=== PATIENT | female | born 1955 | race Caucasian/White ===

== ENCOUNTER 2017-10-11 06:32 | Inpatient (IN) | payer BC, MEDICAID ==
[~2017-10-11] VITALS: Ht 165.1 cm; Wt 108.5 kg
[~2017-10-11 06:32] MED LIST: HYDR25TA4 PO; OMEP20CA10 PO
[2017-10-11 06:50] VITALS: BP_SYST 166
--- NOTE | 2017-10-11 06:50 | NUR ---
Patient to ER bed 3 to gown for evaluation. Side rails up.
--- NOTE | 2017-10-11 07:15 | NUR ---
MD Kulkarni at bedside.
[2017-10-11] MEDS ORDERED: NACL 0.9% 1,000 ML IV ONE (07:20)
[2017-10-11 07:47] LABS: BASOPHILS % (AUTO) 0.8 % (0.0-2.0); EOSINOPHILS % (AUTO) 0.5 % (0.0-4.0); HEMATOCRIT 42.1 % (36-48); HEMOGLOBIN 14.3 g/dL (12.0-16.0); LYMPHOCYTES # (AUTO) 1.2 K/uL (1.0-5.5); LYMPHOCYTES % (AUTO) 20.3 % (20.5-51.5); MEAN CORPUSCULAR HEMOGLOBIN 31 pg (27-31); MEAN CORPUSCULAR HGB CONC 34 % (32-36); MEAN CORPUSCULAR VOLUME 92 fL (79.0-98.0); MONOCYTES # (AUTO) 0.7 K/uL (0.0-1.0); MONOCYTES % (AUTO) 11.8 % (1.7-9.3); NEUTROPHILS # (AUTO) 4.2 K/uL (1.8-7.7); NEUTROPHILS % (AUTO) 66.6 % (40.0-70.0); PLATELET COUNT (AUTO) 208 K/uL (130-430); RED BLOOD CELL COUNT(AUTO) 4.57 MIL/uL (4.2-6.2); RED CELL DISTRIBUTION WIDTH 13.6 % (9.0-15.0); WHITE BLOOD COUNT (AUTO) 6.1 K/uL (4.8-10.8)
[2017-10-11 07:55] LABS: CALCIUM 8.8 mg/dL (8.4-11.0); CREATININE 0.78 mg/dL (0.55-1.30); POTASSIUM 3.4 mmol/L (3.5-5.1)
[2017-10-11 08:11] LABS: ALBUMIN 3.5 g/dL (3.4-4.8); TOTAL BILIRUBIN 0.5 mg/dL (0.0-1.0)
--- NOTE | 2017-10-11 08:50 | NUR ---
Patient reassessed resting comfortably, comfort measures provided, VSS, condition stable, awaiting on urinalysis.
[2017-10-11 10:12] LABS: BILIRUBIN,URINE 1+ (NEGATIVE); BLOOD, URINE 1+ (NEGATIVE); CLARITY/URINE SL HAZY (CLEAR); COLOR,URINE AMBER (YELLOW); GLUCOSE,URINE NEGATIVE (NEGATIVE); KETONES,URINE NEGATIVE (NEGATIVE); LEUKOCYTE ESTERASE ,URINE NEGATIVE (NEGATIVE); NITRITE, URINE NEGATIVE (NEGATIVE); PROTEIN URINE NEGATIVE (NEGATIVE); UROBILINOGEN,URINE 0.2 (0.2-1.0)
[2017-10-11 10:19] LABS: BACTERIA,URINE MODERATE /HPF (None Seen); MUCUS,URINE 1+ /LPF (None Seen); WBC,URINE 0-3 /HPF (0-3)
--- NOTE | 2017-10-11 10:29 | NUR ---
Pt c/o feeling "Fever" assessed oral temp 99.4 at bedside.
[2017-10-11] MEDS ORDERED: KETOROLAC TROMETHAMINE 15 MG VIAL IVP ONE (10:30)
--- NOTE | 2017-10-11 11:00 | NUR ---
Patient will be admitted to [facility]. Admitted to unit. Will go to room . Belongings list completed. Summary report printed. Report will be given at bedside.
--- NOTE | 2017-10-11 11:04 | NUR ---
ADMISSION NOTE Received patient from ER via marshall, received report from ENERGY PROJECT ENGINEER. Patient admitted with diagnosis of DEHYDRATION/GASTROENTERITIS. Patient oriented to hospital routine, call light, toileting and safety-patient verbalized understanding.
[2017-10-11 11:06] VITALS: BP_SYST 138
[2017-10-11] MEDS ORDERED: LEVO50TA77 PO (11:22)
[2017-10-11] MEDS ORDERED: METO25TA6 PO (11:22)
[2017-10-11] MEDS ORDERED: ALBMDI INH (11:22)
[2017-10-11] MEDS ORDERED: LORA10TA7 PO (11:22)
[2017-10-11] MEDS ORDERED: FLUT9.9S NS (11:22)
--- NOTE | 2017-10-11 13:00 | NUR ---
RN OPENING NOTE REPRORT RECEIVED FROM GEOVANY TINSLEY, ROSEANN, PATIENT WAS ASSESSED , VITAL SIGNS ARE STABLE, PATIENT BED WAS PUT AT A LOW POSITION AND CALL LIGHT WITHIN REACH, PATIENT DENIES PAIN OR DISCOMFORT. WILL CONTINUE TO FOLLOW UP AND WILL CALL DR. WARREN FOR FURTHER ORDERS.
--- NOTE | 2017-10-11 15:00 | NUR ---
RN NOTES PATIENT WENT TO SMOKE WITH SINDHU THE [employer] DEPARTMENT MANAGER ACCOMPANIED HER, PATIENT DENIES PAIN OR DISCOMFORT. WILL CONTINUE TO MONITOR.
[2017-10-11 16:56] VITALS: BP_SYST 157
--- NOTE | 2017-10-11 18:00 | NUR ---
RN CLOSING NOTE TRYING TO REACH FOR DR. GAN, HE WAS PAGED, PATIENT IS COMPLAINING OF SORE THROAT AND A LITTLE HEADACHE, NO MEDICINE ENTERED BY DR. GAN, WILL TRY TO PAGE HIM AGAIN, MEANWHILE PATIENT WAS SERVED HIS DINNER. SAT ON HER BED EATING . WILL CONTINUE TO MONITOR AND WILL ENDORSE TO NEXT SHIFT.
--- NOTE | 2017-10-11 19:20 | NUR ---
OPENING NOTES Bedside report received from day shift nurse. Patient received sitting up in bed, AOx4. Patient complaining of headache and sore throat. Patient informed that Dr. Cali has been paged and she will be update as soon as possible. No SOB. Breathing even and unlabored. Call light with patient, instructed to call for any assistance, patient verbalized understanding. Bed is locked and at lowest position. Will continue to monitor.
[2017-10-11 20:00] VITALS: BP_SYST 151
--- NOTE | 2017-10-11 20:37 | NUR ---
DR. GAN PRESENT AT BEDSIDE Dr. GAN at bedside assessing patient. Patient informed MD of 01/04 pain. MD stated he will put in the orders for morphine. Will carry out orders.
[2017-10-11] MEDS ORDERED: MORPHINE SULFATE 30 MG Immediate Release TABLET PO PRN (20:45)
[2017-10-11] MEDS ORDERED: POTASSIUM CHLORIDE 20 MEQ TAB.PRT.SR PO ONE (21:00)
[2017-10-11] MEDS: MORPHINE 4 MG/ML INJ. SYRINGE IVP PRN (21:20)
--- NOTE | 2017-10-11 21:20 | NUR ---
PAIN Patient stated that her headache is now a 10/10 pain. Morphine administered per PRN order. Patient educated on side effects of morphine and instructed to call for assistance, patient verbalized understanding. Will continue to monitor and reassess.
--- NOTE | 2017-10-11 22:00 | NUR ---
REASSESS PAIN Patient stated that her pain is 2/10, tolerable. Pain medication is effective. All of patient's needs met at this time. Call light with patient. Will continue to monitor.
[2017-10-11] MEDS: IPRATROPIUM/ALBUTEROL SULFATE 3 ML AMPUL.NEB INH PRN (22:03)
[2017-10-11] MEDS ORDERED: metroNIDAZOLE 500 mg/NS 200 ML IV ONE (22:23)
[2017-10-11 22:27] VITALS: BP_SYST 151
[2017-10-11] MEDS: metroNIDAZOLE 500 mg/NS 100 ML IV SCH (22:31)
--- NOTE | 2017-10-12 | NUR ---
ROUNDS Patient in bed sleeping. No s/s of acute distress. Chest rise and fall are even bilaterally. Call light within reach. Will continue to monitor.
--- NOTE | 2017-10-12 | NUR ---
RECOLLECT STOOL RN informed by LAB that stool sample needs to be recollected. Will carry out.
[2017-10-12 00:14] VITALS: BP_SYST 130
--- NOTE | 2017-10-12 01:20 | NUR ---
COMPLAIN OF PAIN Patient complained of 7/10 pain. Morphine administered per PRN orders. Patient educated on side effects of medication, instructed to call for any assistance, call light with patient, patient verbalized understanding. Will continue to monitor.
[2017-10-12] MEDS: MORPHINE 4 MG/ML INJ. SYRINGE IVP PRN ×5 (01:27→23:30)
--- NOTE | 2017-10-12 02:11 | NUR ---
Consult Called for Jaylin Hardy Reason for consultation: C. DIFF Person who was notified: Eri Ordered by Dr. Cali
--- NOTE | 2017-10-12 04:10 | NUR ---
ROUNDS Patient in bed sleeping at this time. No signs of discomfort noted. No SOB. Breathing even and unlabored. Call light within reach. Will continue to monitor.
[2017-10-12] MEDS: metroNIDAZOLE 500 mg/NS 100 ML IV SCH ×3 (06:00→23:29)
[2017-10-12] MEDS: LEVOTHYROXINE SODIUM 0.05 MG TABLET PO SCH (06:00)
--- NOTE | 2017-10-12 06:22 | NUR ---
CLOSING NOTES Patient in bed at this time watching TV. No s/s of acute distress noted. IV antibiotics infusing well, IV site shows no infection or infiltration. No SOB. Breathing even and unlabored. All of patient's needs met throughout shift. Fall and safety precautions met throughout shift. Will continue to monitor until patient care is endorsed to oncoming day shift nurse.
[2017-10-12 06:47] LABS: BASOPHILS % (AUTO) 0.1 % (0.0-2.0); EOSINOPHILS % (AUTO) 0.7 % (0.0-4.0); HEMATOCRIT 38.6 % (36-48); HEMOGLOBIN 13.2 g/dL (12.0-16.0); LYMPHOCYTES # (AUTO) 1.1 K/uL (1.0-5.5); LYMPHOCYTES % (AUTO) 19.7 % (20.5-51.5); MEAN CORPUSCULAR HEMOGLOBIN 32 pg (27-31); MEAN CORPUSCULAR HGB CONC 34 % (32-36); MEAN CORPUSCULAR VOLUME 93 fL (79.0-98.0); MONOCYTES # (AUTO) 0.7 K/uL (0.0-1.0); MONOCYTES % (AUTO) 12.6 % (1.7-9.3); NEUTROPHILS # (AUTO) 3.8 K/uL (1.8-7.7); NEUTROPHILS % (AUTO) 66.9 % (40.0-70.0); PLATELET COUNT (AUTO) 169 K/uL (130-430); RED BLOOD CELL COUNT(AUTO) 4.14 MIL/uL (4.2-6.2); RED CELL DISTRIBUTION WIDTH 13.5 % (9.0-15.0); WHITE BLOOD COUNT (AUTO) 5.6 K/uL (4.8-10.8)
[2017-10-12 07:13] LABS: ALBUMIN 3.2 g/dL (3.4-4.8); CALCIUM 8.9 mg/dL (8.4-11.0); CREATININE 0.71 mg/dL (0.55-1.30); FREE T4 (FREE THYROXINE) 0.7 ng/dL (0.6-1.6); POTASSIUM 3.6 mmol/L (3.5-5.1); TOTAL BILIRUBIN 0.5 mg/dL (0.0-1.0)
--- NOTE | 2017-10-12 07:40 | NUR ---
INITIAL NOTE PT IN BED, NO S/S OF DISTRESS OR SOB NOTED, PT HAS NO C/O PAIN AT THIS TIME, PT IN STABLE CONDITION, PT AAOX4, VERBAL, IV CATHETER PATENT, NO SIGNS OF INFECTION OR INFILTRATION NOTED. BED AT LOWEST POSITION, CALL LIGHT WITHIN REACH, WILL CONTINUE TO MONITOR PT FOR ANY CHANGES, FALL AND SAFETY PRECAUTIONS IN PLACE. PT REFUSED TO HAVE BED ALARM ON AND SCD'S, EDUCATED ON IMPORTANCE OF SCD'S TO PREVENT DVT, PT VERBALIZED BUT REFUSED, EDUCATED ON SAFETY AND HAVING BED ALARM ON BUT PT REFUSED AND VERBALIZED UNDERSTANDING.
[2017-10-12 08:30] VITALS: BP_SYST 175
[2017-10-12] MEDS: LORATADINE 10 MG TABLET PO SCH (08:31)
[2017-10-12] MEDS: OMEPRAZOLE 20 MG CAPSULE.DR (PriLOSEC) PO SCH (08:31)
[2017-10-12] MEDS: HYDROCHLOROTHIAZIDE 25 MG TABLET (HCTZ) PO SCH (08:32)
[2017-10-12] MEDS: METOPROLOL TARTRATE 25 MG TABLET PO SCH (08:32)
--- NOTE | 2017-10-12 10:00 | NUR ---
ROUNDS PT IN BED, NO S/S OF DISTRESS OR SOB NOTED, PT HAS NO C/O PAIN AT THIS TIME, PT IN STABLE CONDITION, PT RESTING COMFORTABLY, WILL CONTINUE TO MONITOR PT FOR ANY CHANGES.
[2017-10-12 12:16] VITALS: BP_SYST 127
--- NOTE | 2017-10-12 14:33 | NUR ---
ROUNDS PT IN BED, NO S/S OF DISTRESS OR SOB NOTED, PT HAS NO C/O PAIN AT THIS TIME, PT IN STABLE CONDITION, PT RESTING COMFORTABLY AND TALKING ON THE PHONE, WILL CONTINUE TO MONITOR PT FOR ANY CHANGES.
[2017-10-12] MEDS ORDERED: LACTOBACILLUS RHAMNOSUS GG 1 CAP CAPSULE PO ONE (14:45)
--- NOTE | 2017-10-12 15:06 | NUR ---
CONSULTATION CALLED REASON FOR CONSULTATION:COPD WAS CONSULT CALLED?Y PERSON WHO WAS NOTIFIED:THOMAS CONSULTING PHYSICIAN:BRIA DUNBAR [facility] PHONE NUMBER:[phone] ORDERING PHYSICIAN:MONTSERRAT DIAMOND
[2017-10-12 16:32] VITALS: BP_SYST 135
[2017-10-12] MEDS ORDERED: methylPREDNISolone SOD SUCC/PF 62.5 MG/ML VIAL IVP ONE (17:58)
--- NOTE | 2017-10-12 18:10 | NUR ---
D/C Planning: Received message requesting CM to call back Taylor with [employer] at [phone]. Called [facility] at [phone] left message with CM number for return call.
--- NOTE | 2017-10-12 18:33 | NUR ---
CLOSING NOTE PT IN BED, NO S/S OF DISTRESS OR SOB NOTED, PT HAS NO C/O PAIN AT THIS TIME, PT IN STABLE CONDITION, PT AAOX4, VERBAL, IV CATHETER PATENT, NO SIGNS OF INFECTION OR INFILTRATION NOTED. BED AT LOWEST POSITION, CALL LIGHT WITHIN REACH, WILL ENDORSE CARE OF PT TO INCOMING NURSE, FALL AND SAFETY PRECAUTIONS IN PLACE. PT REFUSED TO HAVE BED ALARM AND SCD'S IN PLACE, EDUCATED ON NEED BUT CONTINUES TO REFUSE.
[2017-10-12] MEDS: AZITHROMYCIN 500 MG in NS 250 ML IV SCH (18:55)
--- NOTE | 2017-10-12 19:40 | NUR ---
INITIAL NOTES RECEIVED PATIENT ON BED AWAKE AND ALERT, A/OX4 BREATHING EVEN AND UNLABORED, MAINTAINED POSITION OF COMFORT, MAINTAINED SAFETY PRECAUTION, NO PAIN NOTED, BED ON THE LOWEST POSITION. ENCOURAGED DEEP BREATHING EXERCISES AND RELAXATION. PATIENT STATED THAT SHE WANTS TO SMOKE, EDUCATION GIVEN ABOUT POLICIES OF SMOKING, HANNAH RAYMOND WILL ACCOMPANY THE PATIENT. EXPLAINED THE PLAN OF CARE AND VERBALIZED UNDERSTANDING, VS ON STABLE CONDITION WILL CONTINUE TO MONITOR CALL LIGHT WITHIN REACH.
[2017-10-12 20:00] VITALS: BP_SYST 159
[2017-10-12] MEDS: LACTOBACILLUS RHAMNOSUS GG 1 CAP CAPSULE PO SCH (21:24)
--- NOTE | 2017-10-12 23:30 | NUR ---
NEW IV NEW IV ON THE RIGHT WRIST 22G CLEAN DRY INTACT PATENT AND NON SWOLLEN WILL CONTINUE TO MONITOR. FLAGYL MEDICATION LATE DUE TO INTERRUPTION WITH IV INSERTION.
--- NOTE | 2017-10-13 00:09 | NUR ---
RN ROUNDS PATIENT ON BED AWAKE AND RESTING, WATCHING TV, BREATHING EVEN AND UNLABORED, MAINTAINED POSITION OF COMFORT MAINTAINED SAFETY PRECAUTION, NO PAIN NOTED. WILL CONTINUE TO MONITOR CALL LIGHT WITHIN REACH
[2017-10-13 00:47] VITALS: BP_SYST 134
--- NOTE | 2017-10-13 02:03 | NUR ---
RN ROUNDS PATIENT ON BED SLEEPING AND RESTING, ON STABLE CONDITION, SAFETY PRECAUTIONS MAINTAINED NO PAIN NOTED, WILL CONTINUE TO MONITOR CALL LIGHT WITHIN REACH.
[2017-10-13] MEDS: IPRATROPIUM/ALBUTEROL SULFATE 3 ML AMPUL.NEB INH SCH ×4 (02:17→21:29)
[2017-10-13] MEDS: IPRATROPIUM/ALBUTEROL SULFATE 3 ML AMPUL.NEB INH PRN (02:18)
--- NOTE | 2017-10-13 04:01 | NUR ---
RN ROUNDS PATIENT STATED THAT SHE WANTED TO SMOKE OUTSIDE GIVEN EDUCATION ABOUT SAFETY PRECAUTIONS PATIENT VERBALIZED UNDERSTANDING BUT STILL WANTED TO GO OUTSIDE AT THIS TIME. WILL CONTINUE TO MONITOR, PATIENT ON STABLE CONDITION. NO SOB NOTED,CALL LIGHT WITHIN REACH
[2017-10-13] MEDS: MORPHINE 4 MG/ML INJ. SYRINGE IVP PRN ×5 (04:31→22:30)
[2017-10-13] MEDS: metroNIDAZOLE 500 mg/NS 100 ML IV SCH ×2 (07:01→14:54)
[2017-10-13] MEDS: LEVOTHYROXINE SODIUM 0.05 MG TABLET PO SCH (07:01)
--- NOTE | 2017-10-13 08:07 | NUR ---
CLOSING NOTES PATIENT ON BED SLEEPING AND RESTING, BREATHING EVEN AND UNLABORED, NO SOB NOTED, NO PAIN NOTED TOLERATING WELL. PATIENT WITH IV CLEAN DRY INTACT, MAINTAINED SAFETY PRECAUTION KEPT COMFORTABLE. KEPT PATIENT COMFORTABLE, ALL NEEDS MET, REPORT GIVEN TO AM NURSE CALL LIGHT WITHIN REACH.
--- NOTE | 2017-10-13 08:11 | NUR ---
PATIENT A/OX4, ON ROOM AIR, SATTING AT 90-92%, NO PAIN NOTED TOLERATING WELL. IV ON LEFT HAND, #22, INTACT AND PATENT, SL. INSTRUCTED ON PLAN OF CARE. CALL LIGHT IN PLACE, BED LOCKED AT THE LOWEST POSITION, WILL CONTINUE TO MONITOR.
[2017-10-13] MEDS: LORATADINE 10 MG TABLET PO SCH (08:31)
[2017-10-13] MEDS: LACTOBACILLUS RHAMNOSUS GG 1 CAP CAPSULE PO SCH ×2 (08:31→20:33)
[2017-10-13] MEDS: HYDROCHLOROTHIAZIDE 25 MG TABLET (HCTZ) PO SCH (08:31)
[2017-10-13] MEDS: METOPROLOL TARTRATE 25 MG TABLET PO SCH (08:32)
[2017-10-13] MEDS: OMEPRAZOLE 20 MG CAPSULE.DR (PriLOSEC) PO SCH (08:32)
--- NOTE | 2017-10-13 10:18 | NUR ---
PATIENT IS AT REST, NO SIGNS OF DISTRESS NOTED, WILL CONTINUE TO MONITOR.
--- NOTE | 2017-10-13 12:22 | NUR ---
PATIENT IS TURNED AND REPOSITIONED FOR COMFORT. HAD A LOOSE BROWN BM
[2017-10-13 12:55] VITALS: BP_SYST 112
--- NOTE | 2017-10-13 14:30 | NUR ---
PATIENT'S DAUGHTER AT BEDSIDE, WITH DR. YOU EXPLAINING THE PLAN OF TREATMENT. Addendum: 10/13/17 at 1936 by Faisal Regan RN WRONG PATIENT.
--- NOTE | 2017-10-13 14:30 | NUR ---
PATIENT REQUESTED TO BE TAKEN OUT TO SMOKE. SHE IS FOLLOWED BY LECTURER IN COMPUTER SCIENCE.
--- NOTE | 2017-10-13 16:17 | NUR ---
PATIENT'S IV RESTARTED AT LEFT HAND, #22, INTACT AND PATENT.
[2017-10-13 17:02] VITALS: BP_SYST 146
[2017-10-13] MEDS ORDERED: FAMOTIDINE 20 MG TABLET PO ONE (17:15)
[2017-10-13] MEDS ORDERED: PREDNISONE 20 MG TABLET PO ONE (17:15)
[2017-10-13] MEDS: AZITHROMYCIN 500 MG in NS 250 ML IV SCH (17:34)
--- NOTE | 2017-10-13 18:30 | NUR ---
PATIENT IS EATING DINNER, NO SIGNS OF DISTRESS NOTED.
--- NOTE | 2017-10-13 19:32 | NUR ---
SUSIE, [facility] REQUESTING PATIENT INFORMATION. SHE LEAVES THE FAX NUMBER [phone]
[2017-10-13 19:40] VITALS: BP_SYST 121
--- NOTE | 2017-10-13 19:40 | NUR ---
Opening note Pt AAOx4, VSS, saturation at 94% on RA. Pt c/o burning pain on L. hand IV 22G with Zithromax abx currently infusing. IV site flushed clear, patent, no infiltration noted. Abx stopped with little bit left in bag. Pt upset that she was poked several times to get IV. RN and information services assistant educated pt that sometimes side effect of IV med is burning at the IV site. Will continue to reassess pt. Call light within reach.
[2017-10-13] MEDS: FAMOTIDINE 20 MG TABLET PO SCH (20:33)
[2017-10-13] MEDS: PREDNISONE 20 MG TABLET PO SCH (20:34)
--- NOTE | 2017-10-13 20:45 | NUR ---
Paged Dr. Cali/change antibiotics to PO Paged and spoke with Dr. Cali re pt's c/o IV abx causing burning pain at IV site. Per MD huff to change IV antibiotic Flagyl and Zithromax to PO.
--- NOTE | 2017-10-13 20:45 | NUR ---
Paged Dr. Cali Paged Dr. Cali, dialed [phone], s/w Alisa.
--- NOTE | 2017-10-13 22:15 | NUR ---
Rounds/Smoking Pt requested to smoke outside. Pt aware of risks. Pt wheeled via wheelchair to smoking area and pt smoked for approx 15 minutes.
[2017-10-13] MEDS: metroNIDAZOLE 500 MG TABLET PO SCH (22:45)
[2017-10-14 00:10] VITALS: BP_SYST 111
--- NOTE | 2017-10-14 00:28 | NUR ---
Rounds Pt asleep. No s/s distress noted. Call light/items within reach. To monitor.
--- NOTE | 2017-10-14 04:30 | NUR ---
Rounds Pt asleep. No s/s distress noted. Call light within reach. To monitor.
[2017-10-14] MEDS: metroNIDAZOLE 500 MG TABLET PO SCH ×2 (06:27→13:35)
[2017-10-14] MEDS: LEVOTHYROXINE SODIUM 0.05 MG TABLET PO SCH (06:27)
--- NOTE | 2017-10-14 07:00 | NUR ---
Closing note Pt's IV came out as she was wiping her face. Pt refused new IV start at this time and states she wants to go home today. Plan is to continue PO antibiotics Flagyl and Zithromax for 10 days upon DC. To endorse to am nurse.
[2017-10-14 07:22] VITALS: BP_SYST 111
--- NOTE | 2017-10-14 07:49 | NUR ---
PATIENT A/OX4, ON ROOM AIR, SATTING AT 92-94%, NO PAIN NOTED TOLERATING WELL. INSTRUCTED ON PLAN OF CARE. CALL LIGHT IN PLACE, BED LOCKED AT THE LOWEST POSITION, WILL CONTINUE TO MONITOR.
[2017-10-14] MEDS: FAMOTIDINE 20 MG TABLET PO SCH (08:12)
[2017-10-14] MEDS: PREDNISONE 20 MG TABLET PO SCH (08:12)
[2017-10-14] MEDS: OMEPRAZOLE 20 MG CAPSULE.DR (PriLOSEC) PO SCH (08:12)
[2017-10-14] MEDS: LACTOBACILLUS RHAMNOSUS GG 1 CAP CAPSULE PO SCH (08:13)
[2017-10-14] MEDS: LORATADINE 10 MG TABLET PO SCH (08:13)
[2017-10-14] MEDS: HYDROCHLOROTHIAZIDE 25 MG TABLET (HCTZ) PO SCH (08:18)
[2017-10-14] MEDS: METOPROLOL TARTRATE 25 MG TABLET PO SCH (08:18)
[2017-10-14] MEDS: IPRATROPIUM/ALBUTEROL SULFATE 3 ML AMPUL.NEB INH SCH (08:31)
[2017-10-14] MEDS ORDERED: AZITHROMYCIN 250 MG TABLET PO SCH (09:00)
[2017-10-14 12:08] VITALS: BP_SYST 130
[2017-10-14 14:10] VITALS: BP_SYST 130
--- NOTE | 2017-10-14 15:08 | NUR ---
D/C Patient Patient given medication reconciliation form and D/C instructions. Exit Care provided. Patient verbalized understanding. MD discussed with patient the results and treatment provided. Ambulatory with steady gait for discharge to home. Patient in stable condition, ID band removed. IV catheter removed, intact and dressing applied, no active bleeding. Rx of Flagyl, probiotics, Medrol pack, and Combivent given. Patient educated on pain management. All belongings sent with patient.
== END 2017-10-14 15:02 | disposition home or self-care (01) | DRG 139 ==
LOC: SED 06:32 → SMU 10:53
PROVIDERS: ADMIT Internal Medicine; ATTEND Internal Medicine
DX: J18.9 Pneumonia, unspecified organism (principal); K52.1 Toxic gastroenteritis and colitis; J44.0 Chronic obstructive pulmonary disease with (acute) lower respiratory infection; R15.9 Full incontinence of feces; J44.1 Chronic obstructive pulmonary disease with (acute) exacerbation; I10 Essential (primary) hypertension; J32.9 Chronic sinusitis, unspecified; E03.9 Hypothyroidism, unspecified; T36.95XA Adverse effect of unspecified systemic antibiotic, initial encounter; K44.9 Diaphragmatic hernia without obstruction or gangrene; E78.5 Hyperlipidemia, unspecified; E66.9 Obesity, unspecified; F17.210 Nicotine dependence, cigarettes, uncomplicated; Z85.828 Personal history of other malignant neoplasm of skin; Z88.1 Allergy status to other antibiotic agents; Z79.899 Other long term (current) drug therapy; Y92.89 Other specified places as the place of occurrence of the external cause; Z88.8 Allergy status to other drugs, medicaments and biological substances
CPT/HCPCS: 36415; 70486-TC; 71045; 71250-TC; 80053; 81000-TC; 83605; 84439; 84484; 85025; 85610-TC; 85730-TC; 87040-TC; 87045-TC; 87046; 87070-TC; 87086; 87205-TC; 87230-TC; 89055; 93005; 94640; 94760; 96361; 96374; 99285; J0456; J1885; J2270; J2274; J2930; J3490; J7030; J7050; J7512; J7620; Q0144